=== PATIENT | female | born 1945 | race Caucasian/White ===

== ENCOUNTER → 2018-09-20 | Outpatient (CLI) | payer MEDICARE ==
[2018-09-21 02:31] LABS: T4, Free (Free Thyroxine) 1.1 ng/dL (0.80-1.80)
[2018-09-21 02:35] LABS: Protein, Total 6.8 g/dL (6.2-8.2)
[2018-09-21 04:06] LABS: Hemoglobin A1C 6.5 % (4.0-6.0)
[2018-09-21 11:28] LABS: ANA Pattern Speckled
== END | disposition home or self-care (01) ==
LOC: LABWHC1 15:37
PROVIDERS: ATTEND Psychiatry & Neurology Neurology
DX: G62.9 Polyneuropathy, unspecified (principal); G25.81 Restless legs syndrome; M54.5 Low back pain
CPT/HCPCS: 36415; 82607; 82728; 82747; 83036; 83540; 83550; 84165; 84439; 84443; 85652; 86038; 86039; 86618